=== PATIENT | female | born 1995 | race Caucasian/White ===

== ENCOUNTER 2018-07-29 22:25 | Emergency (ER) | payer SELFPAY ==
[2018-07-29 22:34] VITALS: Ht 165.1 cm
[2018-07-29 23:23] VITALS: BP 128/77
== END 2018-07-29 23:23 | disposition home or self-care (01) ==
LOC: ED 22:25
DX: J40 Bronchitis, not specified as acute or chronic (principal)

== ENCOUNTER 2019-08-29 21:14 | Emergency (ER) | payer OTHER ==
[~2019-08-29] VITALS: Ht 165.1 cm; Wt 66.7 kg
[2019-08-29 21:20] VITALS: Ht 165.1 cm; Wt 66.7 kg
[2019-08-29 23:19] VITALS: BP 115/63
== END 2019-08-29 23:19 | disposition home or self-care (01) ==
LOC: ED 21:14
DX: J06.9 Acute upper respiratory infection, unspecified (principal); R51 Headache